=== PATIENT | male | born 1960 | race Caucasian/White ===

== ENCOUNTER 2021-10-20 09:57 | Emergency (ER) | payer BC ==
[~2021-10-20] VITALS: Ht 180.3 cm; Wt 125.0 kg
[2021-10-20 12:18] VITALS: TEMP 98.5
[2021-10-20 14:25] VITALS: BP 103/72; PULSE 86
== END 2021-10-20 14:40 | disposition home or self-care (01) ==
LOC: COL.ER 09:57
DX: U07.1 COVID-19 (principal)
CPT/HCPCS: M0245